=== PATIENT | male | born 1985 | race Caucasian/White ===

== ENCOUNTER → 2016-08-09 | Outpatient (CLI) | payer BC, OTHER ==
[~2016-08-09] MED LIST: BACTRIM DS 8001 TAB PO; CIPRO 500MG TA500 MG PO; DEXILANT60 MG PO; DULERA1 ARO IH; FERROUSAL325 MG PO; FLAGYL500 MG PO; FLOVENT 110MCG7.9 GM IH; IRON325 M1 PO; NEXIUM 20MG20 MG PO; NORCO 325 MG-51 TAB PO; NORCO 325 MG-7.1 TAB PO; PREDNISONE20 MG PO; PROVENTIL0.09 MG/A1 IH; RHINOCORT0.032 MG/1 NS; SINGULAIR 110 MG/TAB PO; TUSS PO; ULTRAM 50MG TAB50 MG PO; VENTOLIN0.09 MG IH; ZITHROMAX 250M250 MG PO; ZYRTEC 10MG10 MG PO; ZYRTEC5 MG PO
== END ==
LOC: COL.VAS 08-03 08:30
DX: J45.998 Other asthma (principal); G47.34 Idiopathic sleep related nonobstructive alveolar hypoventilation

== ENCOUNTER 2016-08-27 07:48 | Emergency (ER) | payer BC, OTHER ==
[~2016-08-27] VITALS: Ht 162.6 cm; Wt 84.1 kg
[~2016-08-27 07:48] MED LIST changes: -BACTRIM DS 8001 TAB PO; -CIPRO 500MG TA500 MG PO; -FLAGYL500 MG PO; -TUSS PO; -ULTRAM 50MG TAB50 MG PO; -ZITHROMAX 250M250 MG PO; -ZYRTEC 10MG10 MG PO
[2016-08-27 08:16] VITALS: BP 129/89; TEMP 98.3
[2016-08-27 08:55] LABS: BASO # 0.1 (0.0-0.2); BASO % 0.4 % (0.0-2.0); EOS # 0.4 (0.0-0.7); EOS % 2.7 % (0-4.0); GRAN # 11.2 (1.4-6.5); GRAN % 80.4 % (42.2-75.2); HEMATOCRIT 45.1 % (42.0-52.0); HEMOGLOBIN 15.4 g/dl (13.5-18.0); LYMPH # 1.5 (1.2-3.4); MEAN CELL VOLUME 83 fl (80.0-100.0); MEAN CORPUSCULAR HEMOGLOBIN 28 pg (27.0-31.0); MEAN CORPUSCULAR HGB CONC 34 g/dl (33.0-37.0); MEAN PLATELET VOLUME 10.4 fl (7.4-10.4); MONO # 0.7 (0.1-0.6); MONO % 5.1 % (1.7-9.3); PLATELET COUNT 196 K/mm3 (130-400); RED BLOOD COUNT 5.46 M/mm3 (4.20-5.60); REDCELL DISTRIBUTION WIDTH-CV 19.6 % (11.5-14.5)
[2016-08-27 08:58] LABS: PH 6 (5-8); SQUAMOUS EPITHELIAL None Seen /hpf; URINE APPEARANCE Clear; URINE BACTERIA None Seen /hpf; URINE BILIRUBIN Negative (NEGATIVE); URINE BLOOD Negative (NEGATIVE); URINE COLOR Yellow; URINE GLUCOSE Negative (NEGATIVE); URINE KETONE Trace (NEGATIVE); URINE RBC 0-2 /hpf; URINE UROBILINOGEN Negative (NEGATIVE); URINE WBC 0-2 /hpf
[2016-08-27 09:20] LABS: ADJUSTED CALCIUM 9.2 mg/dL (8.4-10.2); ALBUMIN 4.6 gm/dL (3.5-5.0); BILIRUBIN,TOTAL 1.1 mg/dL (0.0-1.0); C-REACTIVE PROTEIN 5.9 mg/dL (0.0-0.9); CALCIUM 9.7 mg/dL (8.4-10.2); CREATININE, serum 0.94 mg/dL (0.66-1.25); POTASSIUM 4.1 mmol/L (3.4-5.0); TOTAL PROTEIN 7.8 gm/dL (6.4-8.2)
[2016-08-27] MEDS ORDERED: FLAGYL500 MG PO (10:29)
[2016-08-27] MEDS ORDERED: CIPRO 500MG TA500 MG PO (10:29)
[2016-08-27] MEDS ORDERED: NORCO 325 MG-51 TAB PO (10:33)
[2016-08-27 10:40] VITALS: PULSE 101
== END 2016-08-27 10:40 | disposition home or self-care (01) ==
LOC: COL.ER 07:48
PROVIDERS: Physician Assistant
DX: K57.32 Diverticulitis of large intestine without perforation or abscess without bleeding (principal)
CPT/HCPCS: Q9967

== ENCOUNTER 2016-09-07 18:00 | Emergency (ER) | payer BC, OTHER ==
[~2016-09-07] VITALS: Ht 162.6 cm; Wt 84.1 kg
[~2016-09-07 18:00] MED LIST changes: +CIPRO 500MG TA500 MG PO; +FLAGYL500 MG PO
[2016-09-07 18:04] VITALS: TEMP 98.1
[2016-09-07 18:49] LABS: PH 6 (5-8); SQUAMOUS EPITHELIAL None Seen /hpf; URINE APPEARANCE Clear; URINE BACTERIA None Seen /hpf; URINE BILIRUBIN Negative (NEGATIVE); URINE BLOOD Negative (NEGATIVE); URINE COLOR Yellow; URINE GLUCOSE Negative (NEGATIVE); URINE KETONE Negative (NEGATIVE); URINE RBC 0-2 /hpf; URINE UROBILINOGEN Negative (NEGATIVE); URINE WBC 0-2 /hpf
[2016-09-07 18:54] LABS: BASO # 0.1 (0.0-0.2); BASO % 0.8 % (0.0-2.0); EOS # 0.3 (0.0-0.7); EOS % 4.5 % (0-4.0); GRAN # 3.8 (1.4-6.5); GRAN % 57.2 % (42.2-75.2); HEMOGLOBIN 13.6 g/dl (13.5-18.0); LYMPH # 2.1 (1.2-3.4); LYMPH % 32.2 % (20.0-51.0); MEAN CELL VOLUME 83 fl (80.0-100.0); MEAN CORPUSCULAR HEMOGLOBIN 28 pg (27.0-31.0); MEAN CORPUSCULAR HGB CONC 34 g/dl (33.0-37.0); MEAN PLATELET VOLUME 9.6 fl (7.4-10.4); MONO # 0.3 (0.1-0.6); PLATELET COUNT 213 K/mm3 (130-400); REDCELL DISTRIBUTION WIDTH-CV 17.8 % (11.5-14.5); WHITE BLOOD COUNT 6.7 K/mm3 (4.8-10.8)
[2016-09-07 19:09] LABS: ADJUSTED CALCIUM 9.6 mg/dL (8.4-10.2); ALANINE AMINOTRANSFERASE 49 U/L (21-72); ALBUMIN 3.8 gm/dL (3.5-5.0); ALKALINE PHOSPHATASE 57 U/L (50-136); ANION GAP 10 mmol/L (7-16); BILIRUBIN,TOTAL 0.5 mg/dL (0.0-1.0); BLOOD UREA NITROGEN 13 mg/dL (9-20); C-REACTIVE PROTEIN < 0.5 mg/dL (0.0-0.9); CALCIUM 9.4 mg/dL (8.4-10.2); CARBON DIOXIDE 25 mmol/L (22-30); CHLORIDE 104 mmol/L (98-107); CREATININE, serum 0.87 mg/dL (0.66-1.25); GLUCOSE 83 mg/dL (74-106); LIPASE 103 U/L (23-300); POTASSIUM 3.7 mmol/L (3.4-5.0); SODIUM 139 mmol/L (137-145); TOTAL PROTEIN 6.4 gm/dL (6.4-8.2)
[2016-09-07 19:21] LABS: ERYTHROCYTE SEDIMENTATION RATE 4 mm/hr (0-15)
[2016-09-07] MEDS ORDERED: NORCO 325 MG-51 TAB PO (20:18)
[2016-09-07] MEDS ORDERED: FLAGYL500 MG PO (20:18)
[2016-09-07] MEDS ORDERED: BACTRIM DS 8001 TAB PO (20:18)
[2016-09-07] MEDS ORDERED: ULTRAM 50MG TAB50 MG PO (20:18)
[2016-09-07 20:36] VITALS: BP 125/93; PULSE 67
== END 2016-09-07 20:38 | disposition home or self-care (01) ==
LOC: COL.ER 18:00
PROVIDERS: Emergency Medicine
DX: R10.32 Left lower quadrant pain (principal)

== ENCOUNTER → 2016-09-20 | Outpatient (CLI) | payer BC, OTHER ==
[~2016-09-20] MED LIST changes: +BACTRIM DS 8001 TAB PO; +TUSS PO; +ULTRAM 50MG TAB50 MG PO; +ZITHROMAX 250M250 MG PO; +ZYRTEC 10MG10 MG PO
== END ==
LOC: COL.RAD 09:45
DX: K22.4 Dyskinesia of esophagus (principal); N50.3 Cyst of epididymis; N43.2 Other hydrocele; K44.9 Diaphragmatic hernia without obstruction or gangrene; R10.2 Pelvic and perineal pain; N50.89 Other specified disorders of the male genital organs

== ENCOUNTER 2016-10-26 07:15 | Day surgery (SDC) | payer BC, OTHER ==
[2016-10-26] VITALS (11 sets, daily range): BP systolic 96–117; BP diastolic 51–74; PULSE 78–100; TEMP 97.4–98.6
[~2016-10-26] VITALS: Ht 162.6 cm; Wt 83.2 kg
[~2016-10-26 07:15] MED LIST changes: -TUSS PO; -ZITHROMAX 250M250 MG PO; -ZYRTEC 10MG10 MG PO
[2016-10-26] MEDS ORDERED: ZYRTEC 10MG10 MG PO (07:58)
[2016-10-27 02:17] VITALS: BP 110/71; PULSE 77; TEMP 98.5
[2016-10-27 05:02] VITALS: BP 101/60; PULSE 77; TEMP 97.5
[2016-10-27 09:42] VITALS: BP 108/56; PULSE 77; TEMP 98
[2016-10-27] MEDS ORDERED: NORCO 325 MG-7.1 TAB PO (10:59)
== END 2016-10-27 14:18 | disposition home or self-care (01) ==
LOC: SDCO 07:15 → SURG 11:20 → SDCO 10-27 14:18
DX: K44.9 Diaphragmatic hernia without obstruction or gangrene (principal); R13.10 Dysphagia, unspecified
CPT/HCPCS: OP; C1781; J0690; J1100; J2250; J2405; J2704; J3010; J7120

== ENCOUNTER 2016-11-01 22:09 | Emergency (ER) | payer BC, OTHER ==
[~2016-11-01] VITALS: Ht 162.6 cm; Wt 81.8 kg
[~2016-11-01 22:09] MED LIST changes: +ZYRTEC 10MG10 MG PO
[2016-11-01 22:12] VITALS: TEMP 98.5
[2016-11-01] MEDS ORDERED: ZITHROMAX 250M250 MG PO (23:06)
[2016-11-01 23:12] LABS: INFLUENZA B NEGATIVE
[2016-11-01 23:28] LABS: BASO % 0.6 % (0.0-2.0); EOS # 0.3 (0.0-0.7); EOS % 8.9 % (0-4.0); GRAN % 56.5 % (42.2-75.2); LYMPH # 0.8 (1.2-3.4); LYMPH % 23.3 % (20.0-51.0); MEAN CELL VOLUME 84 fl (80.0-100.0); MEAN CORPUSCULAR HEMOGLOBIN 28 pg (27.0-31.0); MEAN CORPUSCULAR HGB CONC 33 g/dl (33.0-37.0); MEAN PLATELET VOLUME 10.1 fl (7.4-10.4); MONO # 0.4 (0.1-0.6); MONO % 10.1 % (1.7-9.3); PLATELET COUNT 191 K/mm3 (130-400); RED BLOOD COUNT 4.31 M/mm3 (4.20-5.60); REDCELL DISTRIBUTION WIDTH-CV 12.1 % (11.5-14.5); WHITE BLOOD COUNT 3.5 K/mm3 (4.8-10.8)
[2016-11-01 23:30] LABS: HEMATOCRIT 36.3 % (42.0-52.0)
[2016-11-01 23:38] LABS: ADJUSTED CALCIUM 9.2 mg/dL (8.4-10.2); ALBUMIN 3.8 gm/dL (3.5-5.0); BILIRUBIN,TOTAL 1.1 mg/dL (0.0-1.0); CREATININE, serum 1.01 mg/dL (0.66-1.25); POTASSIUM 3.9 mmol/L (3.4-5.0); TOTAL PROTEIN 6.8 gm/dL (6.4-8.2)
[2016-11-01] MEDS ORDERED: TUSS PO (23:50)
[2016-11-02 00:39] VITALS: BP 117/77; PULSE 89
== END 2016-11-02 01:45 | disposition home or self-care (01) ==
LOC: COL.ER 22:09
PROVIDERS: Nurse Practitioner
DX: R05 Cough (principal); J20.9 Acute bronchitis, unspecified; J42 Unspecified chronic bronchitis; F17.210 Nicotine dependence, cigarettes, uncomplicated
CPT/HCPCS: J0456; J7030; J7050

== ENCOUNTER → 2016-11-08 | Outpatient (CLI) | payer BC, OTHER ==
[~2016-11-08] MED LIST changes: +TUSS PO; +ZITHROMAX 250M250 MG PO
== END ==
LOC: COL.RAD 13:04
DX: J98.11 Atelectasis (principal)

== ENCOUNTER → 2017-02-16 | Outpatient (CLI) | payer BC ==
[2017-02-16 13:41] LABS: BASO % 0.5 % (0.0-2.0); EOS # 0.1 (0.0-0.7); EOS % 1.9 % (0-4.0); GRAN # 4.1 (1.4-6.5); GRAN % 63.3 % (42.2-75.2); HEMATOCRIT 41.3 % (42.0-52.0); HEMOGLOBIN 13.6 g/dl (13.5-18.0); LYMPH # 1.9 (1.2-3.4); LYMPH % 28.5 % (20.0-51.0); MEAN CELL VOLUME 81 fl (80.0-100.0); MEAN CORPUSCULAR HEMOGLOBIN 27 pg (27.0-31.0); MEAN CORPUSCULAR HGB CONC 33 g/dl (33.0-37.0); MEAN PLATELET VOLUME 10.3 fl (7.4-10.4); MONO # 0.3 (0.1-0.6); MONO % 5.2 % (1.7-9.3); PLATELET COUNT 160 K/mm3 (130-400); RED BLOOD COUNT 5.09 M/mm3 (4.20-5.60); REDCELL DISTRIBUTION WIDTH-CV 20.6 % (11.5-14.5); WHITE BLOOD COUNT 6.5 K/mm3 (4.8-10.8)
== END ==
LOC: COL.LAB 11:58
PROVIDERS: Registered Nurse
DX: D50.9 Iron deficiency anemia, unspecified (principal)

== ENCOUNTER 2017-04-18 14:45 | Outpatient (RCR) | payer BC | END 2017-05-06 | LOC: WSPT | DX: M54.5 Low back pain (principal) ==

== ENCOUNTER 2017-09-12 08:44 | Emergency (ER) | payer BC ==
[~2017-09-12] VITALS: Ht 165.1 cm; Wt 82.3 kg
[~2017-09-12 08:44] MED LIST changes: +NAPROSYN500 MG PO
[2017-09-12 09:22] LABS: COLLECTION METHOD CLEAN CATCH
[2017-09-12 09:37] LABS: MUCOUS Present /lpf; PH 5 (5-8); SQUAMOUS EPITHELIAL None Seen /hpf; URINE APPEARANCE Clear; URINE BACTERIA None Seen /hpf; URINE BILIRUBIN Negative (NEGATIVE); URINE BLOOD Negative (NEGATIVE); URINE COLOR Yellow; URINE GLUCOSE Negative (NEGATIVE); URINE KETONE Negative (NEGATIVE); URINE LEUKOCYTE ESTERASE Negative (NEGATIVE); URINE NITRATE Negative (NEGATIVE); URINE PROTEIN(semi-quant) Negative (NEGATIVE); URINE RBC None Seen /hpf; URINE UROBILINOGEN Negative (NEGATIVE)
[2017-09-12 09:38] LABS: BASO # 0.1 (0.0-0.2); BASO % 0.6 % (0.0-2.0); EOS # 0.4 (0.0-0.7); GRAN # 6.3 (1.4-6.5); GRAN % 70.9 % (42.2-75.2); HEMATOCRIT 45.7 % (42.0-52.0); HEMOGLOBIN 15.9 g/dl (13.5-18.0); LYMPH # 1.7 (1.2-3.4); MEAN CELL VOLUME 87 fl (80.0-100.0); MEAN CORPUSCULAR HEMOGLOBIN 30 pg (27.0-31.0); MEAN CORPUSCULAR HGB CONC 35 g/dl (33.0-37.0); MEAN PLATELET VOLUME 10.4 fl (7.4-10.4); MONO # 0.5 (0.1-0.6); MONO % 5.2 % (1.7-9.3); PLATELET COUNT 181 K/mm3 (130-400); RED BLOOD COUNT 5.27 M/mm3 (4.20-5.60)
[2017-09-12 09:39] LABS: ALBUMIN 4.5 gm/dL (3.5-5.0); BILIRUBIN,TOTAL 0.5 mg/dL (0.0-1.0); CALCIUM 9.1 mg/dL (8.4-10.2); CREATININE, serum 0.8 mg/dL (0.66-1.25); POTASSIUM 4.2 mmol/L (3.4-5.0); TOTAL PROTEIN 7.3 gm/dL (6.4-8.2)
[2017-09-12] MEDS ORDERED: FLAGYL500 MG PO (12:08)
[2017-09-12] MEDS ORDERED: CIPRO 500MG TA500 MG PO (12:08)
[2017-09-12] MEDS ORDERED: NORCO 325 MG-7.1 TAB PO (12:08)
[2017-09-12 12:16] VITALS: BP 123/83; PULSE 85; TEMP 98.3
== END 2017-09-12 12:30 | disposition home or self-care (01) ==
LOC: COL.ER 08:44
PROVIDERS: Physician Assistant
DX: K57.92 Diverticulitis of intestine, part unspecified, without perforation or abscess without bleeding (principal); J45.909 Unspecified asthma, uncomplicated; D64.9 Anemia, unspecified; F17.210 Nicotine dependence, cigarettes, uncomplicated; Z90.49 Acquired absence of other specified parts of digestive tract
CPT/HCPCS: J1170; J2405; J7030; Q9967

== ENCOUNTER 2018-06-27 19:19 | Emergency (ER) | payer BC ==
[~2018-06-27] VITALS: Ht 162.6 cm; Wt 75.0 kg
[2018-06-27 19:55] LABS: COLLECTION METHOD CLEAN CATCH
[2018-06-27 20:01] LABS: BASO % 0.3 % (0.0-2.0); EOS # 0.2 (0.0-0.7); EOS % 1.4 % (0-4.0); GRAN # 11.5 (1.4-6.5); GRAN % 85.8 % (42.2-75.2); HEMATOCRIT 42.2 % (42.0-52.0); HEMOGLOBIN 14.6 g/dl (13.5-18.0); LYMPH # 0.9 (1.2-3.4); MEAN CELL VOLUME 87 fl (80.0-100.0); MEAN CORPUSCULAR HEMOGLOBIN 30 pg (27.0-31.0); MEAN CORPUSCULAR HGB CONC 35 g/dl (33.0-37.0); MEAN PLATELET VOLUME 10.1 fl (7.4-10.4); MONO # 0.7 (0.1-0.6); MONO % 5.2 % (1.7-9.3); PLATELET COUNT 181 K/mm3 (130-400); RED BLOOD COUNT 4.85 M/mm3 (4.20-5.60); REDCELL DISTRIBUTION WIDTH-CV 12.4 % (11.5-14.5)
[2018-06-27 20:12] LABS: AMORPHOUS CRYSTAL Present /uL; MUCOUS Present /lpf; PH 7 (5-8); SQUAMOUS EPITHELIAL None Seen /hpf; URINE APPEARANCE Cloudy; URINE BACTERIA None Seen /hpf; URINE BILIRUBIN Negative (NEGATIVE); URINE BLOOD Negative (NEGATIVE); URINE COLOR Yellow; URINE GLUCOSE Negative (NEGATIVE); URINE KETONE Negative (NEGATIVE); URINE LEUKOCYTE ESTERASE Negative (NEGATIVE); URINE NITRATE Negative (NEGATIVE); URINE PROTEIN(semi-quant) Negative (NEGATIVE); URINE RBC 0-2 /hpf; URINE UROBILINOGEN Negative (NEGATIVE)
[2018-06-27 20:31] LABS: ALBUMIN 4.1 gm/dL (3.5-5.0); BILIRUBIN,TOTAL 0.7 mg/dL (0.0-1.0); C-REACTIVE PROTEIN 2.3 mg/dL (0.0-0.9); CREATININE, serum 0.7 mg/dL (0.66-1.25); POTASSIUM 4.3 mmol/L (3.4-5.0); TOTAL PROTEIN 6.8 gm/dL (6.4-8.2)
[2018-06-27] MEDS ORDERED: FLAGYL500 MG PO (22:49)
[2018-06-27] MEDS ORDERED: PHENERGAN 25 TA25 MG PO (22:49)
[2018-06-27] MEDS ORDERED: NORCO 325 MG-51 TAB PO (22:49)
[2018-06-27] MEDS ORDERED: CIPRO 500MG TA500 MG PO (22:49)
[2018-06-27 23:11] VITALS: BP 104/66; PULSE 98; TEMP 99.9
== END 2018-06-27 23:30 | disposition home or self-care (01) ==
LOC: COL.ER 19:19
PROVIDERS: Emergency Medicine
DX: K57.32 Diverticulitis of large intestine without perforation or abscess without bleeding (principal); F17.210 Nicotine dependence, cigarettes, uncomplicated; Z98.890 Other specified postprocedural states
CPT/HCPCS: J2405; J3010; J7030; Q9967

== ENCOUNTER 2018-07-02 18:00 | Inpatient (IN) | payer BC ==
[~2018-07-02] VITALS: Ht 162.6 cm; Wt 73.7 kg
[~2018-07-02 18:00] MED LIST changes: +PHENERGAN 25 TA25 MG PO
[2018-07-02 18:53] LABS: BASO % 0.3 % (0.0-2.0); EOS # 0.2 (0.0-0.7); EOS % 1.2 % (0-4.0); GRAN # 10.8 (1.4-6.5); HEMATOCRIT 43.1 % (42.0-52.0); HEMOGLOBIN 14.7 g/dl (13.5-18.0); LYMPH # 1.4 (1.2-3.4); LYMPH % 10.9 % (20.0-51.0); MEAN CELL VOLUME 87 fl (80.0-100.0); MEAN CORPUSCULAR HEMOGLOBIN 30 pg (27.0-31.0); MEAN CORPUSCULAR HGB CONC 34 g/dl (33.0-37.0); MEAN PLATELET VOLUME 9.2 fl (7.4-10.4); MONO # 0.7 (0.1-0.6); MONO % 5.2 % (1.7-9.3); PLATELET COUNT 228 K/mm3 (130-400); RED BLOOD COUNT 4.96 M/mm3 (4.20-5.60); REDCELL DISTRIBUTION WIDTH-CV 12.2 % (11.5-14.5)
[2018-07-02 19:23] LABS: ALBUMIN 3.9 gm/dL (3.5-5.0); BILIRUBIN,TOTAL 0.5 mg/dL (0.0-1.0); C-REACTIVE PROTEIN 5.3 mg/dL (0.0-0.9); CALCIUM 8.9 mg/dL (8.4-10.2); CREATININE, serum 0.82 mg/dL (0.66-1.25); POTASSIUM 4.1 mmol/L (3.4-5.0)
[2018-07-02 22:27] VITALS: BP 102/64; PULSE 86; TEMP 98.9
[2018-07-02] MEDS ORDERED: VENTOLIN0.09 MG IH (23:04)
[2018-07-03 02:27] VITALS: BP 102/60; PULSE 79; TEMP 98.7
[2018-07-03 07:24] VITALS: BP 97/53; PULSE 80; TEMP 98
[2018-07-03 07:30] VITALS: BP 97/53; PULSE 80; TEMP 98
[2018-07-03 08:27] LABS: HEMATOCRIT 38.2 % (42.0-52.0); HEMOGLOBIN 13.1 g/dl (13.5-18.0); MEAN CELL VOLUME 88 fl (80.0-100.0); MEAN CORPUSCULAR HEMOGLOBIN 30 pg (27.0-31.0); MEAN CORPUSCULAR HGB CONC 34 g/dl (33.0-37.0); MEAN PLATELET VOLUME 9.7 fl (7.4-10.4); PLATELET COUNT 202 K/mm3 (130-400); RED BLOOD COUNT 4.36 M/mm3 (4.20-5.60); REDCELL DISTRIBUTION WIDTH-CV 12.3 % (11.5-14.5)
[2018-07-03 08:42] LABS: ALBUMIN 3.1 gm/dL (3.5-5.0); CALCIUM 8.3 mg/dL (8.4-10.2); CREATININE, serum 0.86 mg/dL (0.66-1.25); PHOSPHOROUS 3.4 mg/dL (2.5-4.5); POTASSIUM 4.1 mmol/L (3.4-5.0)
[2018-07-03 09:09] LABS: BAND 7 % (0-10); EOSINOPHIL 2 % (0-4); LYMPHOCYTE 16 % (20.0-51.0); NEUTROPHILS 70 % (42.0-75.2); PLATELET ESTIMATE NORMAL (NORMAL)
[2018-07-03 11:24] VITALS: BP 111/74; PULSE 85; TEMP 97.8
[2018-07-03 15:19] VITALS: BP 107/71; PULSE 81; TEMP 99.1
[2018-07-03 19:41] VITALS: BP 91/55; PULSE 79; TEMP 98.8
[2018-07-04] VITALS (7 sets, daily range): BP systolic 94–114; BP diastolic 55–73; PULSE 73–84; TEMP 98.1–98.5
[2018-07-04 09:06] LABS: BASO % 0.4 % (0.0-2.0); EOS # 0.3 (0.0-0.7); EOS % 3.1 % (0-4.0); GRAN # 6.3 (1.4-6.5); GRAN % 75.8 % (42.2-75.2); HEMATOCRIT 38.8 % (42.0-52.0); LYMPH # 1.3 (1.2-3.4); LYMPH % 15.2 % (20.0-51.0); MEAN CELL VOLUME 88 fl (80.0-100.0); MEAN CORPUSCULAR HEMOGLOBIN 30 pg (27.0-31.0); MEAN CORPUSCULAR HGB CONC 34 g/dl (33.0-37.0); MEAN PLATELET VOLUME 9.6 fl (7.4-10.4); MONO # 0.4 (0.1-0.6); PLATELET COUNT 190 K/mm3 (130-400); RED BLOOD COUNT 4.41 M/mm3 (4.20-5.60); REDCELL DISTRIBUTION WIDTH-CV 12.2 % (11.5-14.5)
[2018-07-04 09:13] LABS: CALCIUM 8.5 mg/dL (8.4-10.2); CREATININE, serum 0.83 mg/dL (0.66-1.25); POTASSIUM 4.1 mmol/L (3.4-5.0)
[2018-07-05 04:18] VITALS: BP 102/69; PULSE 70
[2018-07-05 07:39] VITALS: BP 101/63; PULSE 80; TEMP 98.1
[2018-07-05] MEDS ORDERED: AMOXICILLIN 8751 TAB PO (09:04)
[2018-07-05] MEDS ORDERED: NORCO 325 MG-51 TAB PO (09:04)
[2018-07-05 09:53] LABS: BASO % 0.5 % (0.0-2.0); EOS # 0.5 (0.0-0.7); EOS % 7.5 % (0-4.0); GRAN # 4.5 (1.4-6.5); GRAN % 68.5 % (42.2-75.2); HEMOGLOBIN 13.6 g/dl (13.5-18.0); LYMPH # 1.2 (1.2-3.4); LYMPH % 18.4 % (20.0-51.0); MEAN CELL VOLUME 86 fl (80.0-100.0); MEAN CORPUSCULAR HEMOGLOBIN 30 pg (27.0-31.0); MEAN CORPUSCULAR HGB CONC 35 g/dl (33.0-37.0); MEAN PLATELET VOLUME 9.3 fl (7.4-10.4); MONO # 0.3 (0.1-0.6); MONO % 4.6 % (1.7-9.3); PLATELET COUNT 200 K/mm3 (130-400); RED BLOOD COUNT 4.52 M/mm3 (4.20-5.60); REDCELL DISTRIBUTION WIDTH-CV 11.9 % (11.5-14.5)
[2018-07-05 10:01] LABS: CALCIUM 8.9 mg/dL (8.4-10.2); CREATININE, serum 0.87 mg/dL (0.66-1.25); POTASSIUM 4.1 mmol/L (3.4-5.0)
[2018-07-05 11:21] VITALS: BP 120/72; PULSE 85; TEMP 97.9
[2018-07-05 15:13] VITALS: BP 115/75; PULSE 74; TEMP 98.2
== END 2018-07-05 18:46 | disposition home or self-care (01) | DRG 392 ==
LOC: COL.ER 18:00 → MEDICAL 20:23
PROVIDERS: Emergency Medicine; Surgery
DX: K57.32 Diverticulitis of large intestine without perforation or abscess without bleeding (principal); F17.210 Nicotine dependence, cigarettes, uncomplicated
CPT/HCPCS: J2270; J2405; J2543; J7030; J7120; Q9967

== ENCOUNTER 2018-07-13 23:51 | Emergency (ER) | payer BC ==
[~2018-07-13] VITALS: Ht 162.6 cm; Wt 73.2 kg
[~2018-07-13 23:51] MED LIST changes: +AMOXICILLIN 8751 TAB PO
[2018-07-14 00:42] LABS: BASO # 0.1 (0.0-0.2); BASO % 0.4 % (0.0-2.0); EOS # 0.5 (0.0-0.7); EOS % 4.4 % (0-4.0); GRAN # 8.5 (1.4-6.5); GRAN % 75.6 % (42.2-75.2); HEMOGLOBIN 14.1 g/dl (13.5-18.0); LYMPH # 1.7 (1.2-3.4); LYMPH % 15.2 % (20.0-51.0); MEAN CELL VOLUME 87 fl (80.0-100.0); MEAN CORPUSCULAR HEMOGLOBIN 30 pg (27.0-31.0); MEAN CORPUSCULAR HGB CONC 34 g/dl (33.0-37.0); MEAN PLATELET VOLUME 9.7 fl (7.4-10.4); MONO # 0.5 (0.1-0.6); PLATELET COUNT 236 K/mm3 (130-400); RED BLOOD COUNT 4.69 M/mm3 (4.20-5.60); REDCELL DISTRIBUTION WIDTH-CV 12.5 % (11.5-14.5)
[2018-07-14 00:57] LABS: ALANINE AMINOTRANSFERASE 55 U/L (21-72); ALBUMIN 4.1 gm/dL (3.5-5.0); ALKALINE PHOSPHATASE 67 U/L (50-136); ANION GAP 9 mmol/L (7-16); AST,SGOT 25 U/L (15-37); BILIRUBIN,TOTAL 0.5 mg/dL (0.0-1.0); BLOOD UREA NITROGEN 9 mg/dL (9-20); CALCIUM 9.3 mg/dL (8.4-10.2); CARBON DIOXIDE 25 mmol/L (22-30); CHLORIDE 107 mmol/L (98-107); CREATININE, serum 0.68 mg/dL (0.66-1.25); GLUCOSE 107 mg/dL (74-106); POTASSIUM 3.6 mmol/L (3.4-5.0); SODIUM 141 mmol/L (137-145)
[2018-07-14 01:12] LABS: LIPASE 76 U/L (23-300); MAGNESIUM 1.8 mg/dL (1.6-2.3)
[2018-07-14 01:13] LABS: C-REACTIVE PROTEIN < 0.5 mg/dL (0.0-0.9)
[2018-07-14] MEDS ORDERED: FLAGYL500 MG PO (03:06)
[2018-07-14 03:10] VITALS: BP 111/83; PULSE 67; TEMP 97
== END 2018-07-14 03:15 | disposition home or self-care (01) ==
LOC: COL.ER 23:51
PROVIDERS: Emergency Medicine
DX: K57.92 Diverticulitis of intestine, part unspecified, without perforation or abscess without bleeding (principal); E86.9 Volume depletion, unspecified; F17.210 Nicotine dependence, cigarettes, uncomplicated
CPT/HCPCS: J2405; J7030; Q9967

== ENCOUNTER 2019-08-22 12:11 | Emergency (ER) | payer SELFPAY ==
[~2019-08-22] VITALS: Ht 162.6 cm; Wt 77.3 kg
[2019-08-22 12:21] VITALS: BP 112/81
[2019-08-22 13:18] LABS: COLLECTION METHOD CLEAN CATCH
[2019-08-22 13:26] LABS: MUCOUS Present /lpf; PH 5 (5-8); SQUAMOUS EPITHELIAL None Seen /hpf; URINE APPEARANCE Clear; URINE BACTERIA None Seen /hpf; URINE BILIRUBIN Negative (NEGATIVE); URINE BLOOD Negative (NEGATIVE); URINE COLOR Yellow; URINE GLUCOSE Negative (NEGATIVE); URINE KETONE Trace (NEGATIVE); URINE LEUKOCYTE ESTERASE Negative (NEGATIVE); URINE NITRATE Negative (NEGATIVE); URINE PROTEIN(semi-quant) Negative (NEGATIVE); URINE RBC 0-2 /hpf; URINE UROBILINOGEN Negative (NEGATIVE)
[2019-08-22 13:28] LABS: BASO % 0.2 % (0.0-2.0); EOS # 0.2 (0.0-0.7); GRAN # 2.4 (1.4-6.5); GRAN % 55.6 % (42.2-75.2); HEMATOCRIT 46.5 % (42.0-52.0); HEMOGLOBIN 15.9 g/dl (13.5-18.0); LYMPH # 1.3 (1.2-3.4); LYMPH % 30.7 % (20.0-51.0); MEAN CELL VOLUME 87 fl (80.0-100.0); MEAN CORPUSCULAR HEMOGLOBIN 30 pg (27.0-31.0); MEAN CORPUSCULAR HGB CONC 34 g/dl (33.0-37.0); MEAN PLATELET VOLUME 10.1 fl (7.4-10.4); MONO # 0.4 (0.1-0.6); MONO % 8.3 % (1.7-9.3); PLATELET COUNT 160 K/mm3 (130-400); RED BLOOD COUNT 5.35 M/mm3 (4.20-5.60); REDCELL DISTRIBUTION WIDTH-CV 12.6 % (11.5-14.5)
[2019-08-22 13:40] LABS: ALBUMIN 4.5 gm/dL (3.5-5.0); BILIRUBIN,TOTAL 0.8 mg/dL (0.0-1.0); C-REACTIVE PROTEIN 2.1 mg/dL (0.0-0.9); CALCIUM 8.8 mg/dL (8.4-10.2); POTASSIUM 3.9 mmol/L (3.4-5.0); TOTAL PROTEIN 7.6 gm/dL (6.4-8.2)
[2019-08-22] MEDS ORDERED: FLAGYL500 MG PO (14:16)
[2019-08-22] MEDS ORDERED: CIPRO 500MG TA500 MG PO (14:16)
[2019-08-22 14:20] VITALS: PULSE 116; TEMP 98.8
== END 2019-08-22 14:21 | disposition home or self-care (01) ==
LOC: COL.ER 12:11
PROVIDERS: Physician Assistant
DX: J09.X2 Influenza due to identified novel influenza A virus with other respiratory manifestations (principal); J45.909 Unspecified asthma, uncomplicated; F17.290 Nicotine dependence, other tobacco product, uncomplicated; Z88.5 Allergy status to narcotic agent

== ENCOUNTER 2020-06-07 09:03 | Emergency (ER) | payer SELFPAY ==
[~2020-06-07] VITALS: Ht 162.6 cm; Wt 78.2 kg
[2020-06-07 09:12] VITALS: TEMP 97
[2020-06-07] MEDS ORDERED: PREDNISONE20 MG PO (09:49)
[2020-06-07] MEDS ORDERED: ZITHROMAX Z PA250 MG PO (09:49)
[2020-06-07] MEDS ORDERED: PROAIR HFA0.09 MG/AC IH (09:49)
[2020-06-07 12:44] VITALS: BP 111/77; PULSE 97
== END 2020-06-07 10:06 | disposition home or self-care (01) ==
LOC: COL.ER 09:03
DX: R05 Cough (principal); R06.02 Shortness of breath; Z20.828 Contact with and (suspected) exposure to other viral communicable diseases; Z88.6 Allergy status to analgesic agent; Z79.51 Long term (current) use of inhaled steroids

== ENCOUNTER 2020-07-14 19:07 | Emergency (ER) | payer SELFPAY ==
[~2020-07-14] VITALS: Ht 162.6 cm; Wt 80.0 kg
[~2020-07-14 19:07] MED LIST changes: +PROAIR HFA0.09 MG/AC IH; +ZITHROMAX Z PA250 MG PO
[2020-07-14 19:35] VITALS: TEMP 99.3
[2020-07-14 20:35] LABS: HEMATOCRIT 42.7 % (42.0-52.0); HEMOGLOBIN 14.7 g/dl (13.5-18.0); MEAN CELL VOLUME 86 fl (80.0-100.0); MEAN CORPUSCULAR HEMOGLOBIN 30 pg (27.0-31.0); MEAN CORPUSCULAR HGB CONC 34 g/dl (33.0-37.0); MEAN PLATELET VOLUME 10.1 fl (7.4-10.4); PLATELET COUNT 187 K/mm3 (130-400); RED BLOOD COUNT 4.96 M/mm3 (4.20-5.60)
[2020-07-14 20:46] LABS: ALBUMIN 4.2 gm/dL (3.5-5.0); CALCIUM 8.8 mg/dL (8.4-10.2); CREATININE, serum 1.11 (0.66-1.25); POTASSIUM 3.6 mmol/L (3.4-5.0); TOTAL PROTEIN 6.9 gm/dL (6.4-8.2)
[2020-07-14 21:29] LABS: BAND 3 % (0-10); EOSINOPHIL 1 % (0-4); LYMPHOCYTE 6 % (20.0-51.0); NEUTROPHILS 87 % (42.0-75.2)
[2020-07-14 21:31] LABS: PLATELET ESTIMATE NORMAL (NORMAL)
[2020-07-14 23:08] VITALS: BP 124/68; PULSE 110
== END 2020-07-14 23:07 | disposition home or self-care (01) ==
LOC: COL.ER 19:07
PROVIDERS: Emergency Medicine
DX: B34.9 Viral infection, unspecified (principal); F17.210 Nicotine dependence, cigarettes, uncomplicated; Z20.828 Contact with and (suspected) exposure to other viral communicable diseases; Z88.6 Allergy status to analgesic agent; Z79.52 Long term (current) use of systemic steroids
CPT/HCPCS: J2405; J7030

== ENCOUNTER 2020-07-28 07:19 | Inpatient (IN) | payer SELFPAY ==
[~2020-07-28] VITALS: Ht 162.6 cm; Wt 78.9 kg
[2020-07-28 08:28] LABS: BASO % 0.2 % (0.0-2.0); EOS # 0.2 (0.0-0.7); EOS % 1.5 % (0-4.0); GRAN # 10.5 (1.4-6.5); GRAN % 82.4 % (42.2-75.2); HEMATOCRIT 40.5 % (42.0-52.0); HEMOGLOBIN 13.9 g/dl (13.5-18.0); LYMPH # 1.3 (1.2-3.4); LYMPH % 10.1 % (20.0-51.0); MEAN CELL VOLUME 86 fl (80.0-100.0); MEAN CORPUSCULAR HEMOGLOBIN 29 pg (27.0-31.0); MEAN CORPUSCULAR HGB CONC 34 g/dl (33.0-37.0); MEAN PLATELET VOLUME 9.9 fl (7.4-10.4); MONO # 0.7 (0.1-0.6); MONO % 5.3 % (1.7-9.3); PLATELET COUNT 205 K/mm3 (130-400); RED BLOOD COUNT 4.73 M/mm3 (4.20-5.60); REDCELL DISTRIBUTION WIDTH-CV 12.4 % (11.5-14.5)
[2020-07-28 08:40] LABS: ALBUMIN 3.7 gm/dL (3.5-5.0); BILIRUBIN,TOTAL 0.7 mg/dL (0.0-1.0); CALCIUM 8.5 mg/dL (8.4-10.2); CREATININE, serum 0.9 (0.66-1.25); POTASSIUM 4.2 mmol/L (3.4-5.0); TOTAL PROTEIN 6.4 gm/dL (6.4-8.2)
[2020-07-28 08:56] LABS: COLLECTION METHOD CLEAN CATCH
[2020-07-28 09:10] LABS: MUCOUS Present /lpf; PH 7 (5-8); SQUAMOUS EPITHELIAL None Seen /hpf; URINE APPEARANCE Clear; URINE BACTERIA None Seen /hpf; URINE BILIRUBIN Negative (NEGATIVE); URINE BLOOD Negative (NEGATIVE); URINE COLOR Yellow; URINE GLUCOSE Negative (NEGATIVE); URINE KETONE Negative (NEGATIVE); URINE LEUKOCYTE ESTERASE Negative (NEGATIVE); URINE NITRATE Negative (NEGATIVE); URINE PROTEIN(semi-quant) Negative (NEGATIVE); URINE RBC None Seen /hpf; URINE WBC 0-2 /hpf
[2020-07-28 17:57] VITALS: BP 108/70; PULSE 82; TEMP 98.3
[2020-07-28 18:00] VITALS: BP 108/70; PULSE 82; TEMP 98.3
[2020-07-28 19:43] VITALS: BP 106/71; PULSE 85; TEMP 98.5
--- NOTE | 2020-07-28 22:15 | NUR ---
Patient called out to nurses alex, states pain 7/10 to abdomen after po pain medicaion administration. Dilaudid given at this time. No further needs at this time.
[2020-07-29 00:20] VITALS: BP 98/68; PULSE 72; TEMP 97.6
[2020-07-29 03:26] VITALS: BP 82/55; BP 90/52; PULSE 70; TEMP 97.6
[2020-07-29 05:18] VITALS: BP 98/69
--- NOTE | 2020-07-29 07:00 | NUR ---
Lying in bed with eyes open. Rates pain in abd 5/10, describes as an ache, and requests pain medication. Will administer pain medication as prescribed. Patient hopes that he can be discharged today but understands if they are not able to let him leave today. Denies needs at this time.
--- NOTE | 2020-07-29 07:25 | NUR ---
Patient doing well overnight, naps between disturbances. Denies pain at this time. Denies further needs at this time. Will report off to overnight associate.
[2020-07-29 08:15] VITALS: BP 114/76; PULSE 69; TEMP 97.7
[2020-07-29 10:25] LABS: BASO % 0.4 % (0.0-2.0); EOS # 0.2 (0.0-0.7); EOS % 3.4 % (0-4.0); GRAN # 3.2 (1.4-6.5); GRAN % 66.8 % (42.2-75.2); HEMATOCRIT 37.7 % (42.0-52.0); HEMOGLOBIN 12.8 g/dl (13.5-18.0); LYMPH # 1.1 (1.2-3.4); LYMPH % 22.7 % (20.0-51.0); MEAN CELL VOLUME 87 fl (80.0-100.0); MEAN CORPUSCULAR HEMOGLOBIN 29 pg (27.0-31.0); MEAN CORPUSCULAR HGB CONC 34 g/dl (33.0-37.0); MONO # 0.3 (0.1-0.6); MONO % 6.5 % (1.7-9.3); PLATELET COUNT 165 K/mm3 (130-400); RED BLOOD COUNT 4.35 M/mm3 (4.20-5.60); REDCELL DISTRIBUTION WIDTH-CV 12.4 % (11.5-14.5)
[2020-07-29 10:34] LABS: ALBUMIN 3.3 gm/dL (3.5-5.0); BILIRUBIN,TOTAL 0.7 mg/dL (0.0-1.0); CALCIUM 8.1 mg/dL (8.4-10.2); CREATININE, serum 0.84 (0.66-1.25); POTASSIUM 4.1 mmol/L (3.4-5.0); TOTAL PROTEIN 6.1 gm/dL (6.4-8.2)
[2020-07-29 12:13] VITALS: BP 111/71; PULSE 67; TEMP 97.8
--- NOTE | 2020-07-29 12:54 | NUR ---
Lying in bed with eyes open watching TV. Denies pain at this time. Is excited about getting his diet advanced. Denies needs at this time.
--- NOTE | 2020-07-29 14:25 | NUR ---
Lying in bed watching TV and talking on phone. No pain at this time. The cafeteria provided patient with a mechanical soft diet for lunch. Patient feels that he did well with this. Denies needs at this time.
--- NOTE | 2020-07-29 14:34 | NUR ---
Spoke with Dr. Russo regarding prescriptions in case patient is discharged this evening and he agrees that we can call the antibiotics to the pharmacy for someone to citrus picker for the patient so that he has the medication in case of discharge tonight. Spoke with the patient and he will have his go to the pharmacy to citrus picker meds. Patient would like the meds filled at [facility]. [facility]tacted [facility] and spoke with Kari and provided prescriptions for Cipro and Flagyl.
[2020-07-29 15:44] VITALS: BP 87/54; PULSE 68; TEMP 98.1
--- NOTE | 2020-07-29 16:03 | NUR ---
Patient will get dressed at this time and contact friend for ride home. Explain that I would be back with his discharge paperwork.
--- NOTE | 2020-07-29 16:15 | NUR ---
Review all discharge instructions with the patient. Denies questions and signs discharge paperwork. Discharge packet provided to the patient. Patient will use call light when ride is at ER to pick him up.
--- NOTE | 2020-07-29 16:19 | NUR ---
Patient calls and says that his ride is here to pick him up. Patient assisted out to ER entrance to PO with all personal belongings by CAIRDAD Dowling.
== END 2020-07-29 16:20 | disposition home or self-care (01) | DRG 392 ==
LOC: COL.ER 07:19 → SURG 11:53
PROVIDERS: Emergency Medicine; Surgery; ADMIT Hospitalist
DX: K57.32 Diverticulitis of large intestine without perforation or abscess without bleeding (principal); J45.909 Unspecified asthma, uncomplicated; D50.9 Iron deficiency anemia, unspecified
CPT/HCPCS: 99222-AI; 99239; J0744; J1170; J1650; J2270; J2405; J7030; Q9967

== ENCOUNTER 2021-03-08 17:30 | Emergency (ER) | payer SELFPAY ==
[~2021-03-08] VITALS: Ht 162.6 cm; Wt 80.9 kg
[~2021-03-08 17:30] MED LIST changes: +ZOFRAN ODT4 MG PO
[2021-03-08 18:12] VITALS: TEMP 98
[2021-03-08 19:06] LABS: BASO # 0.1 (0.0-0.2); BASO % 0.8 % (0.0-2.0); EOS # 0.7 (0.0-0.7); EOS % 8.3 % (0-4.0); GRAN # 4.7 (1.4-6.5); GRAN % 58.3 % (42.2-75.2); HEMATOCRIT 43.6 % (42.0-52.0); HEMOGLOBIN 14.6 g/dl (13.5-18.0); LYMPH # 2.2 (1.2-3.4); LYMPH % 27.3 % (20.0-51.0); MEAN CELL VOLUME 89 fl (80.0-100.0); MEAN CORPUSCULAR HEMOGLOBIN 30 pg (27.0-31.0); MEAN CORPUSCULAR HGB CONC 34 g/dl (33.0-37.0); MEAN PLATELET VOLUME 10.3 fl (7.4-10.4); MONO # 0.4 (0.1-0.6); MONO % 4.9 % (1.7-9.3); PLATELET COUNT 206 K/mm3 (130-400); RED BLOOD COUNT 4.89 M/mm3 (4.20-5.60); REDCELL DISTRIBUTION WIDTH-CV 12.6 % (11.5-14.5)
[2021-03-08 19:17] LABS: ALBUMIN 4.2 gm/dL (3.5-5.0); BILIRUBIN,TOTAL 0.3 mg/dL (0.0-1.0); CALCIUM 9.1 mg/dL (8.4-10.2); CREATININE, serum 0.88 (0.66-1.25); TOTAL PROTEIN 7.1 gm/dL (6.4-8.2)
[2021-03-08 20:11] LABS: COLLECTION METHOD CLEAN CATCH
[2021-03-08 20:19] LABS: PH 6 (5-8); SQUAMOUS EPITHELIAL None Seen /hpf; URINE APPEARANCE Clear; URINE BACTERIA None Seen /hpf; URINE BILIRUBIN Negative (NEGATIVE); URINE BLOOD Negative (NEGATIVE); URINE COLOR Straw; URINE GLUCOSE Negative (NEGATIVE); URINE KETONE Negative (NEGATIVE); URINE LEUKOCYTE ESTERASE Negative (NEGATIVE); URINE NITRATE Negative (NEGATIVE); URINE PROTEIN(semi-quant) Negative (NEGATIVE); URINE RBC 0-2 /hpf; URINE UROBILINOGEN Negative (NEGATIVE)
[2021-03-08] MEDS ORDERED: ZOFRAN ODT4 MG PO (21:21)
[2021-03-08] MEDS ORDERED: PEPCID 20MG TAB20 MG PO (21:21)
[2021-03-08] MEDS ORDERED: NORCO 325 MG-51 TAB PO (21:23)
[2021-03-08 21:50] VITALS: BP 128/89; PULSE 91
== END 2021-03-08 21:50 | disposition home or self-care (01) ==
LOC: COL.ER 17:30
PROVIDERS: Emergency Medicine
DX: R10.32 Left lower quadrant pain (principal); F17.210 Nicotine dependence, cigarettes, uncomplicated; Z90.49 Acquired absence of other specified parts of digestive tract
CPT/HCPCS: J2270; J2405; J7030; Q9967

== ENCOUNTER → 2021-03-25 | Outpatient (CLI) | payer SELFPAY ==
[~2021-03-25] MED LIST changes: +PEPCID 20MG TAB20 MG PO; +VANCOCIN H125 MG/CAP PO; +ZOFRAN 4MG T4 MG/TAB PO
[2021-03-25 17:13] LABS: CLOSTRIDIUM DIFF A/B NEG; CLOSTRIDIUM DIFF A/B INTERP NonToxigenic C.diff
== END ==
LOC: COL.LAB 11:27
PROVIDERS: Registered Nurse
DX: R19.7 Diarrhea, unspecified (principal)

== ENCOUNTER 2021-04-06 11:33 | Emergency (ER) | payer SELFPAY ==
[~2021-04-06] VITALS: Ht 162.6 cm; Wt 79.1 kg
[~2021-04-06 11:33] MED LIST changes: -VANCOCIN H125 MG/CAP PO; -ZOFRAN 4MG T4 MG/TAB PO
[2021-04-06 13:43] LABS: BASO % 0.4 % (0.0-2.0); EOS # 0.2 (0.0-0.7); EOS % 1.9 % (0-4.0); GRAN # 8.7 (1.4-6.5); HEMATOCRIT 44.2 % (42.0-52.0); HEMOGLOBIN 14.9 g/dl (13.5-18.0); LYMPH # 1.3 (1.2-3.4); LYMPH % 12.2 % (20.0-51.0); MEAN CELL VOLUME 87 fl (80.0-100.0); MEAN CORPUSCULAR HEMOGLOBIN 29 pg (27.0-31.0); MEAN CORPUSCULAR HGB CONC 34 g/dl (33.0-37.0); MONO # 0.6 (0.1-0.6); MONO % 5.2 % (1.7-9.3); PLATELET COUNT 182 K/mm3 (130-400); RED BLOOD COUNT 5.08 M/mm3 (4.20-5.60); REDCELL DISTRIBUTION WIDTH-CV 12.6 % (11.5-14.5)
[2021-04-06 13:54] LABS: ALBUMIN 4.3 gm/dL (3.5-5.0); BILIRUBIN,TOTAL 0.7 mg/dL (0.0-1.0); CREATININE, serum 1.07 (0.66-1.25); POTASSIUM 4.3 mmol/L (3.4-5.0); TOTAL PROTEIN 7.4 gm/dL (6.4-8.2)
[2021-04-06 13:57] LABS: COLLECTION METHOD CLEAN CATCH
[2021-04-06 14:09] LABS: MUCOUS Present /lpf; PH 7 (5-8); SQUAMOUS EPITHELIAL None Seen /hpf; URINE APPEARANCE Clear; URINE BACTERIA None Seen /hpf; URINE BILIRUBIN Negative (NEGATIVE); URINE BLOOD Negative (NEGATIVE); URINE COLOR Yellow; URINE GLUCOSE Negative (NEGATIVE); URINE KETONE Trace (NEGATIVE); URINE LEUKOCYTE ESTERASE Negative (NEGATIVE); URINE NITRATE Negative (NEGATIVE); URINE PROTEIN(semi-quant) Negative (NEGATIVE); URINE RBC 0-2 /hpf; URINE UROBILINOGEN Negative (NEGATIVE)
[2021-04-07 08:47] VITALS: TEMP 98.6
[2021-04-07] MEDS ORDERED: NORCO 325 MG-51 TAB PO (09:55)
[2021-04-07] MEDS ORDERED: ZOFRAN ODT4 MG PO (09:56)
[2021-04-07] MEDS ORDERED: VANCOCIN H125 MG/CAP PO (09:57)
[2021-04-07 11:38] VITALS: BP 113/79; PULSE 103
== END 2021-04-07 11:38 | disposition home or self-care (01) ==
LOC: COL.ER 11:33
PROVIDERS: Student in an Organized Health Care Education/Training Program
DX: A04.72 Enterocolitis due to Clostridium difficile, not specified as recurrent (principal); J45.909 Unspecified asthma, uncomplicated; Z87.19 Personal history of other diseases of the digestive system; Z79.899 Other long term (current) drug therapy; Z79.51 Long term (current) use of inhaled steroids
CPT/HCPCS: 99222-AI; J0692; J2270; J2405; J7030; J7120; Q9967

== ENCOUNTER 2021-05-17 19:09 | Emergency (ER) | payer SELFPAY ==
[~2021-05-17] VITALS: Ht 162.6 cm; Wt 79.5 kg
[~2021-05-17 19:09] MED LIST changes: +VANCOCIN H125 MG/CAP PO
[2021-05-17 20:13] LABS: ALBUMIN 4.4 gm/dL (3.5-5.0); CALCIUM 9.5 mg/dL (8.4-10.2); CREATININE, serum 1.12 mg/dL (0.72-1.25); POTASSIUM 4.1 mmol/L (3.5-4.5); TOTAL PROTEIN 7.7 gm/dL (6.2-8.1)
[2021-05-17 21:02] LABS: COLLECTION METHOD CLEAN CATCH
[2021-05-17 21:09] LABS: MUCOUS Present /lpf; PH 7 (5-8); SQUAMOUS EPITHELIAL None Seen /hpf; URINE APPEARANCE Hazy; URINE BACTERIA None Seen /hpf; URINE BILIRUBIN Negative (NEGATIVE); URINE BLOOD Negative (NEGATIVE); URINE COLOR Yellow; URINE GLUCOSE Negative (NEGATIVE); URINE KETONE 1+ (NEGATIVE); URINE LEUKOCYTE ESTERASE Negative (NEGATIVE); URINE NITRATE Negative (NEGATIVE); URINE PROTEIN(semi-quant) Negative (NEGATIVE); URINE RBC 0-2 /hpf
[2021-05-17 21:32] LABS: BASO % 0.5 % (0.0-2.0); EOS # 0.1 K/mm3 (0.0-0.7); EOS % 0.7 % (0-4.0); GRAN # 7.7 K/mm3 (1.4-6.5); GRAN % 87.2 % (42.2-75.2); HEMATOCRIT 45.9 % (42.0-52.0); HEMOGLOBIN 15.5 g/dl (13.5-18.0); LYMPH # 0.5 K/mm3 (1.2-3.4); LYMPH % 6.1 % (20.0-51.0); MEAN CELL VOLUME 87 fl (80.0-100.0); MEAN CORPUSCULAR HEMOGLOBIN 29 pg (27.0-31.0); MEAN CORPUSCULAR HGB CONC 34 g/dl (33.0-37.0); MEAN PLATELET VOLUME 10.5 fl (7.4-10.4); MONO # 0.5 K/mm3 (0.1-0.6); MONO % 5.3 % (1.7-9.3); PLATELET COUNT 190 K/mm3 (130-400); RED BLOOD COUNT 5.28 M/mm3 (4.20-5.60); REDCELL DISTRIBUTION WIDTH-CV 12.5 % (11.5-14.5)
[2021-05-17 22:22] LABS: BILIRUBIN,TOTAL 1.2 mg/dL (0.2-1.2)
[2021-05-17] MEDS ORDERED: ZOFRAN 4MG T4 MG/TAB PO (23:17)
[2021-05-17 23:46] VITALS: BP 104/68; PULSE 94; TEMP 99
== END 2021-05-17 23:46 | disposition home or self-care (01) ==
LOC: COL.ER 19:09
PROVIDERS: Nurse Practitioner Primary Care
DX: R10.13 Epigastric pain (principal); R11.0 Nausea; J45.909 Unspecified asthma, uncomplicated; F17.210 Nicotine dependence, cigarettes, uncomplicated; Z20.822 Contact with and (suspected) exposure to COVID-19; Z90.49 Acquired absence of other specified parts of digestive tract; Z87.19 Personal history of other diseases of the digestive system; Z79.899 Other long term (current) drug therapy
CPT/HCPCS: J7030; Q9967

== ENCOUNTER 2021-05-23 18:42 | Emergency (ER) | payer SELFPAY ==
[~2021-05-23] VITALS: Ht 162.6 cm; Wt 77.3 kg
[~2021-05-23 18:42] MED LIST changes: +ZOFRAN 4MG T4 MG/TAB PO
[2021-05-23 21:52] LABS: HEMATOCRIT 38.1 % (42.0-52.0); HEMOGLOBIN 13.4 g/dl (13.5-18.0); MEAN CELL VOLUME 85 fl (80.0-100.0); MEAN CORPUSCULAR HEMOGLOBIN 30 pg (27.0-31.0); MEAN CORPUSCULAR HGB CONC 35 g/dl (33.0-37.0); MEAN PLATELET VOLUME 9.8 fl (7.4-10.4); PLATELET COUNT 207 K/mm3 (130-400); RED BLOOD COUNT 4.51 M/mm3 (4.20-5.60); REDCELL DISTRIBUTION WIDTH-CV 12.2 % (11.5-14.5)
[2021-05-23 22:00] LABS: COLLECTION METHOD CLEAN CATCH
[2021-05-23 22:06] LABS: MUCOUS Present /lpf; PH 6 (5-8); SQUAMOUS EPITHELIAL 0-2 /hpf; URINE APPEARANCE Clear; URINE BACTERIA None Seen /hpf; URINE BILIRUBIN Negative (NEGATIVE); URINE BLOOD Negative (NEGATIVE); URINE COLOR Yellow; URINE GLUCOSE Negative (NEGATIVE); URINE KETONE Negative (NEGATIVE); URINE LEUKOCYTE ESTERASE Negative (NEGATIVE); URINE NITRATE Negative (NEGATIVE); URINE PROTEIN(semi-quant) Negative (NEGATIVE); URINE RBC 0-2 /hpf; URINE UROBILINOGEN Negative (NEGATIVE)
[2021-05-23 22:08] LABS: ALBUMIN 3.7 gm/dL (3.5-5.0); BILIRUBIN,TOTAL 0.3 mg/dL (0.2-1.2); C-REACTIVE PROTEIN 2.9 mg/dL (0.00-0.50); CALCIUM 8.9 mg/dL (8.4-10.2); CREATININE, serum 0.83 mg/dL (0.72-1.25); POTASSIUM 3.9 mmol/L (3.5-4.5); TOTAL PROTEIN 7.2 gm/dL (6.2-8.1)
[2021-05-23 22:35] LABS: BAND 1 % (0-10); EOSINOPHIL 1 % (0-4); LYMPHOCYTE 25 % (20.0-51.0); NEUTROPHILS 69 % (42.0-75.2); PLATELET ESTIMATE NORMAL (NORMAL)
[2021-05-23] MEDS ORDERED: AMOXICILLIN 8751 TAB PO (23:16)
[2021-05-24] VITALS: BP 123/91; PULSE 88; TEMP 97.8
== END 2021-05-24 | disposition home or self-care (01) ==
LOC: COL.ER 18:42
PROVIDERS: Nurse Practitioner
DX: R10.32 Left lower quadrant pain (principal); J45.909 Unspecified asthma, uncomplicated; F17.210 Nicotine dependence, cigarettes, uncomplicated; Z79.899 Other long term (current) drug therapy; Z79.51 Long term (current) use of inhaled steroids
CPT/HCPCS: J1170; J2405; J7030

== ENCOUNTER → 2021-08-16 | Outpatient (CLI) | payer SELFPAY | LOC: COL.RAD 12:17 | DX: R19.09 Other intra-abdominal and pelvic swelling, mass and lump (principal) ==

== ENCOUNTER → 2021-09-16 | Outpatient (CLI) | payer BC ==
[2021-09-16 13:34] LABS: BASO # 0.1 K/mm3 (0.0-0.2); BASO % 0.7 % (0.0-2.0); EOS # 0.3 K/mm3 (0.0-0.7); EOS % 4.6 % (0.0-4.0); GRAN # 4.6 K/mm3 (1.4-6.5); HEMATOCRIT 43.8 % (42.0-52.0); HEMOGLOBIN 14.9 g/dl (13.5-18.0); LYMPH # 1.7 K/mm3 (1.2-3.4); LYMPH % 24.4 % (20.0-51.0); MEAN CELL VOLUME 87 fl (80.0-100.0); MEAN CORPUSCULAR HEMOGLOBIN 30 pg (27-31); MEAN CORPUSCULAR HGB CONC 34 g/dl (33.0-37.0); MONO # 0.4 K/mm3 (0.1-0.6); MONO % 5.9 % (1.7-9.3); PLATELET COUNT 227 K/mm3 (130-400); RED BLOOD COUNT 5.03 M/mm3 (4.20-5.60); REDCELL DISTRIBUTION WIDTH-CV 12.7 % (11.5-14.5)
[2021-09-16 13:56] LABS: BILIRUBIN,TOTAL 0.6 mg/dL (0.2-1.2); C-REACTIVE PROTEIN 0.3 mg/dL (0.00-0.50); CALCIUM 8.8 mg/dL (8.4-10.2); CREATININE, serum 0.88 mg/dL (0.72-1.25); POTASSIUM 4.1 mmol/L (3.5-4.5); TOTAL PROTEIN 6.9 gm/dL (6.2-8.1)
== END ==
LOC: COL.LAB 12:49
PROVIDERS: Registered Nurse
DX: R10.30 Lower abdominal pain, unspecified (principal)

== ENCOUNTER 2021-09-23 08:38 | Emergency (ER) | payer BC ==
[~2021-09-23] VITALS: Ht 162.6 cm; Wt 80.0 kg
[2021-09-23 08:55] VITALS: TEMP 98.9
[2021-09-23 09:20] LABS: COLLECTION METHOD CLEAN CATCH
[2021-09-23 09:26] LABS: BASO # 0.1 K/mm3 (0.0-0.2); BASO % 0.7 % (0.0-2.0); EOS # 0.3 K/mm3 (0.0-0.7); GRAN # 5.7 K/mm3 (1.4-6.5); GRAN % 70.6 % (42.2-75.2); HEMOGLOBIN 15.1 g/dl (13.5-18.0); LYMPH # 1.5 K/mm3 (1.2-3.4); LYMPH % 18.8 % (20.0-51.0); MEAN CELL VOLUME 84 fl (80.0-100.0); MEAN CORPUSCULAR HEMOGLOBIN 30 pg (27-31); MEAN CORPUSCULAR HGB CONC 35 g/dl (33.0-37.0); MEAN PLATELET VOLUME 10.2 fl (7.4-10.4); MONO # 0.5 K/mm3 (0.1-0.6); MONO % 5.7 % (1.7-9.3); PLATELET COUNT 196 K/mm3 (130-400); RED BLOOD COUNT 5.11 M/mm3 (4.20-5.60); REDCELL DISTRIBUTION WIDTH-CV 12.6 % (11.5-14.5)
[2021-09-23 09:30] LABS: PH 7 (5-8); SQUAMOUS EPITHELIAL None Seen /hpf (0-10); URINE APPEARANCE Clear (CLEAR/HAZY); URINE BACTERIA None Seen /hpf (NONE SEEN); URINE BILIRUBIN Negative (NEGATIVE); URINE BLOOD Negative (NEGATIVE); URINE COLOR Straw (YELLOW); URINE GLUCOSE Negative (NEGATIVE); URINE KETONE Negative (NEGATIVE); URINE LEUKOCYTE ESTERASE Negative (NEGATIVE); URINE NITRATE Negative (NEGATIVE); URINE PROTEIN(semi-quant) Negative (NEGATIVE); URINE RBC None Seen /hpf (0-2); URINE UROBILINOGEN Negative (NEGATIVE)
[2021-09-23 09:42] LABS: ALBUMIN 4.1 gm/dL (3.5-5.0); BILIRUBIN,TOTAL 0.5 mg/dL (0.2-1.2); CALCIUM 8.9 mg/dL (8.4-10.2); CREATININE, serum 0.9 mg/dL (0.72-1.25); POTASSIUM 4.5 mmol/L (3.5-4.5); TOTAL PROTEIN 6.7 gm/dL (6.2-8.1)
[2021-09-23] MEDS ORDERED: PERCOCET 325 MG1 TA2 PO (13:06)
[2021-09-23] MEDS ORDERED: CIPRO 500MG TA500 MG PO (13:06)
[2021-09-23] MEDS ORDERED: FLAGYL500 MG PO (13:06)
[2021-09-23 14:00] VITALS: BP 112/81; PULSE 80
[2021-09-23] MEDS ORDERED: ZOFRAN ODT4 MG PO (14:41)
== END 2021-09-23 14:00 | disposition home or self-care (01) ==
LOC: COL.ER 08:38
PROVIDERS: Personal Emergency Response Attendant
DX: K57.92 Diverticulitis of intestine, part unspecified, without perforation or abscess without bleeding (principal); N32.1 Vesicointestinal fistula; J45.909 Unspecified asthma, uncomplicated; F17.290 Nicotine dependence, other tobacco product, uncomplicated; Z90.49 Acquired absence of other specified parts of digestive tract; Z79.899 Other long term (current) drug therapy
CPT/HCPCS: J2270; J2405; J7030; Q9967

== ENCOUNTER 2021-09-30 11:21 | Emergency (ER) | payer BC ==
[~2021-09-30] VITALS: Ht 162.6 cm; Wt 77.7 kg
[~2021-09-30 11:21] MED LIST changes: +PERCOCET 325 MG1 TA2 PO
[2021-09-30 11:31] VITALS: TEMP 97.5
[2021-09-30 12:07] VITALS: BP 113/75; PULSE 79
== END 2021-09-30 12:07 | disposition home or self-care (01) ==
LOC: COL.ER 11:21
DX: G56.01 Carpal tunnel syndrome, right upper limb (principal); F17.290 Nicotine dependence, other tobacco product, uncomplicated

== ENCOUNTER 2021-10-08 10:28 | Emergency (ER) | payer BC ==
[~2021-10-08] VITALS: Ht 162.6 cm; Wt 77.3 kg
[2021-10-08 10:55] VITALS: BP 118/77; TEMP 97.8
[2021-10-08] MEDS ORDERED: AMOXICILLIN 8751 TAB PO (11:57)
[2021-10-08 12:20] VITALS: PULSE 81
== END 2021-10-08 12:20 | disposition home or self-care (01) ==
LOC: COL.ER 10:28
DX: K57.92 Diverticulitis of intestine, part unspecified, without perforation or abscess without bleeding (principal); Z90.49 Acquired absence of other specified parts of digestive tract

== ENCOUNTER → 2021-10-10 | Outpatient (CLI) | payer BC ==
[~2021-10-10] MED LIST changes: +FOCALIN2.5 MG PO; +NEURONTIN100 MG/CAP PO; +PRILOSEC 20MG20 MG PO; +ROXICODONE 55 MG/TAB PO; +TYLENOL 500MG500 MG PO; +[UNRECOGNIZED DRUG - OTHER] PO
== END ==
LOC: COL.LAB 19:42
DX: K57.32 Diverticulitis of large intestine without perforation or abscess without bleeding (principal)

== ENCOUNTER → 2021-10-13 | Outpatient (CLI) | payer BC ==
[~2021-10-13] MED LIST changes: -FOCALIN2.5 MG PO; -NEURONTIN100 MG/CAP PO; -PRILOSEC 20MG20 MG PO; -ROXICODONE 55 MG/TAB PO; -TYLENOL 500MG500 MG PO; -[UNRECOGNIZED DRUG - OTHER] PO
== END ==
LOC: COL.RAD 07:37
DX: K44.9 Diaphragmatic hernia without obstruction or gangrene (principal); E83.59 Other disorders of calcium metabolism; N29 Other disorders of kidney and ureter in diseases classified elsewhere; K57.32 Diverticulitis of large intestine without perforation or abscess without bleeding
CPT/HCPCS: Q9967

== ENCOUNTER 2021-11-03 08:20 | Emergency (ER) | payer BC ==
[~2021-11-03] VITALS: Ht 162.6 cm; Wt 81.4 kg
[~2021-11-03 08:20] MED LIST changes: +FOCALIN2.5 MG PO; +PRILOSEC 20MG20 MG PO
[2021-11-03 08:45] VITALS: TEMP 98
[2021-11-03 09:38] LABS: BASO % 0.3 % (0.0-2.0); EOS # 0.3 K/mm3 (0.0-0.7); EOS % 3.2 % (0.0-4.0); GRAN % 77.9 % (42.2-75.2); HEMATOCRIT 40.5 % (42.0-52.0); LYMPH # 1.2 K/mm3 (1.2-3.4); LYMPH % 13.1 % (20.0-51.0); MEAN CELL VOLUME 86 fl (80.0-100.0); MEAN CORPUSCULAR HEMOGLOBIN 30 pg (27-31); MEAN CORPUSCULAR HGB CONC 35 g/dl (33.0-37.0); MEAN PLATELET VOLUME 10.1 fl (7.4-10.4); MONO # 0.5 K/mm3 (0.1-0.6); MONO % 5.2 % (1.7-9.3); PLATELET COUNT 192 K/mm3 (130-400); REDCELL DISTRIBUTION WIDTH-CV 12.3 % (11.5-14.5)
[2021-11-03 09:38] LABS: COLLECTION METHOD CLEAN CATCH
[2021-11-03 09:49] LABS: PH 7 (5-8); SQUAMOUS EPITHELIAL None Seen /hpf (0-10); URINE APPEARANCE Clear (CLEAR/HAZY); URINE BACTERIA None Seen /hpf (NONE SEEN); URINE BILIRUBIN Negative (NEGATIVE); URINE BLOOD Negative (NEGATIVE); URINE COLOR Yellow (YELLOW); URINE GLUCOSE Negative (NEGATIVE); URINE KETONE Negative (NEGATIVE); URINE LEUKOCYTE ESTERASE Negative (NEGATIVE); URINE NITRATE Negative (NEGATIVE); URINE PROTEIN(semi-quant) Negative (NEGATIVE); URINE RBC 0-2 /hpf (0-2); URINE UROBILINOGEN Negative (NEGATIVE)
[2021-11-03 09:51] LABS: ALBUMIN 3.8 gm/dL (3.5-5.0); BILIRUBIN,TOTAL 0.6 mg/dL (0.2-1.2); CALCIUM 8.7 mg/dL (8.4-10.2); CREATININE, serum 0.8 mg/dL (0.72-1.25); POTASSIUM 4.2 mmol/L (3.5-4.5)
[2021-11-03] MEDS ORDERED: NORCO 325 MG-51 TAB PO (15:12)
[2021-11-03 15:28] VITALS: BP 110/81; PULSE 80
== END 2021-11-03 15:30 | disposition home or self-care (01) ==
LOC: COL.ER 08:20
PROVIDERS: Emergency Medicine
DX: R10.32 Left lower quadrant pain (principal); F17.210 Nicotine dependence, cigarettes, uncomplicated; Z90.49 Acquired absence of other specified parts of digestive tract
CPT/HCPCS: J2270; Q9967

== ENCOUNTER 2021-11-07 10:44 | Inpatient (IN) | payer BC ==
[~2021-11-07] VITALS: Ht 162.6 cm; Wt 74.1 kg
[2021-11-29] MEDS ORDERED: [UNRECOGNIZED DRUG - OTHER] PO (12:24)
--- NOTE | 2021-11-29 13:24 | NUR ---
Initial visit; Per request prayed with Shabbir's mom regarding Shabbir's surgery. Nutritionist Public Health requested a successful procedure and rapid and thorough healing along with mom relaxing and her paulette be strengthened.
[2021-11-29 16:16] VITALS: BP 96/70; PULSE 100; TEMP 97.8
[2021-11-30 03:49] VITALS: BP 110/81; PULSE 96; TEMP 97.6
[2021-11-30 06:36] LABS: BASO % 0.2 % (0.0-2.0); GRAN # 8.2 K/mm3 (1.4-6.5); GRAN % 88.9 % (42.2-75.2); HEMATOCRIT 39.4 % (42.0-52.0); HEMOGLOBIN 13.4 g/dl (13.5-18.0); LYMPH # 0.5 K/mm3 (1.2-3.4); LYMPH % 5.8 % (20.0-51.0); MEAN CELL VOLUME 86 fl (80.0-100.0); MEAN CORPUSCULAR HEMOGLOBIN 29 pg (27-31); MEAN CORPUSCULAR HGB CONC 34 g/dl (33.0-37.0); MEAN PLATELET VOLUME 10.4 fl (7.4-10.4); MONO # 0.5 K/mm3 (0.1-0.6); MONO % 4.8 % (1.7-9.3); PLATELET COUNT 204 K/mm3 (130-400); RED BLOOD COUNT 4.56 M/mm3 (4.20-5.60); REDCELL DISTRIBUTION WIDTH-CV 12.4 % (11.5-14.5)
[2021-11-30 06:54] LABS: CALCIUM 8.3 mg/dL (8.4-10.2); CREATININE, serum 0.84 mg/dL (0.72-1.25); MAGNESIUM 1.4 mg/dL (1.6-2.6)
--- NOTE | 2021-11-30 07:28 | NUR ---
Patient arrived to the floor at approximately 2014 from sigmoidectomy. Patient has had complaints of gas pain throughout the shift; this nurse explained that gas pain will subside when the pt is able to ambulate. Shi in place and draining well. Patient has been able to ingest PO intake without difficulty. Patient has had no other complaints throughout this shift. Call light within reach.
[2021-11-30 08:23] VITALS: BP 117/74; PULSE 98; TEMP 98.5
--- NOTE | 2021-11-30 09:11 | NUR ---
PT ANXIOUS IN BED. AM MEDS GIVEN ADVANCED DIET TO FULL LIQUIDS. PT TOLERATING WELL. C/O CORRY PAINS. K-PAD PROVIDED FOR COMFORT.PHYSICIAN IN TO SEE PT. WILL REEVALUATE TOMMORROW FOR DISCHARGE.
--- NOTE | 2021-11-30 09:19 | NUR ---
ELINA met with the patient to discuss discharge plan. The patient lives in [place] with his , Nirmal (#[phone]), and their 5-year-old son and 2-year-old daughter. He reports independence with ADLs and does not have any DME. The patient's primary care provider is Shara Jimenez and [facility]. He reports no difficulties obtaining his meds. The patient does not have a DPOA-HC, but he was interested in obtaining a form. ELINA provided. The patient plans on returning home with his family upon discharge. No additional needs at this time. *Discharge plan: home with family*
[2021-11-30 11:57] VITALS: BP 99/66; PULSE 107; TEMP 984
[2021-11-30 15:22] VITALS: BP 109/64; PULSE 126; TEMP 98.3
[2021-11-30 19:46] VITALS: BP 118/72; PULSE 116; TEMP 98.2
[2021-12-01] VITALS (7 sets, daily range): BP systolic 107–127; BP diastolic 68–86; PULSE 91–138; TEMP 98–99.6
[2021-12-01 06:31] LABS: BASO % 0.3 % (0.0-2.0); EOS % 0.3 % (0.0-4.0); GRAN # 4.9 K/mm3 (1.4-6.5); GRAN % 73.4 % (42.2-75.2); HEMATOCRIT 39.3 % (42.0-52.0); HEMOGLOBIN 13.1 g/dl (13.5-18.0); LYMPH # 1.3 K/mm3 (1.2-3.4); LYMPH % 18.9 % (20.0-51.0); MEAN CELL VOLUME 88 fl (80.0-100.0); MEAN CORPUSCULAR HEMOGLOBIN 29 pg (27-31); MEAN CORPUSCULAR HGB CONC 33 g/dl (33.0-37.0); MEAN PLATELET VOLUME 10.6 fl (7.4-10.4); MONO # 0.4 K/mm3 (0.1-0.6); MONO % 6.6 % (1.7-9.3); PLATELET COUNT 159 K/mm3 (130-400); RED BLOOD COUNT 4.45 M/mm3 (4.20-5.60); REDCELL DISTRIBUTION WIDTH-CV 12.7 % (11.5-14.5)
[2021-12-01 06:50] LABS: ALBUMIN 3.2 gm/dL (3.5-5.0); BILIRUBIN,TOTAL 0.5 mg/dL (0.2-1.2); CREATININE, serum 0.79 mg/dL (0.72-1.25); MAGNESIUM 1.8 mg/dL (1.6-2.6)
--- NOTE | 2021-12-01 10:29 | NUR ---
Follow-up visit; Patient thanked Digital Media Designer for looking in on him. Patient is in considerable discomfort. Digital Media Designer offered God's blessings and God's blessings.
--- NOTE | 2021-12-01 13:43 | NUR ---
INFECTION CONTROL CONTACTED ET PT PLACED IN DROPLET PRECAUTIONS.
--- NOTE | 2021-12-01 15:45 | NUR ---
PT IS UP WALKING IN HALLWAY FOR 2ND TIME TODAY WITH SBA. IVF WAS STOPPED EARLIER @ 1200, PT TOLERATING FLUIDS WELL. PT HAS HAD HIS MOTHER HERE VISITING. PT IS COOPERATIVE, STATES THAT HE IS STILL UNABLE TO PASS GAS BUT FEELS LIKE IT HAS BEEN MOVING, STILL HAVING PAIN IN SHOULDERS ET CHEST. ROXICODONE ET SCHEDULED TYLENOL HAVE ADEQUATELY CONTROLLED PAIN, PT STATES THAT IT IS TOLERABLE.
--- NOTE | 2021-12-01 16:51 | NUR ---
PT RESTING QUIETLY IN BED, IS @ BEDSIDE. PT RATES PAIN IN HIS SHOULDERS ET CHEST 2/10 @ REST, 5/10 WITH MOVEMENT. PT IS AGREEABLE TO WAITING TO TAKE ROXICODONE WHEN IT IS TIME THAT HE CAN. ROLDAN CATHTER DRAINING DEPENDENTLY, URINE IS YELLOW ET CLEAR. RESPIRATIONS UNLABORED ON RA. CALL LIGHT WITHIN REACH.
--- NOTE | 2021-12-01 19:31 | NUR ---
RECEIVED CHANGE OF SHIFT REPORT FROM DAY SHIFT RN.
--- NOTE | 2021-12-01 22:25 | NUR ---
PATIENT REPORTING SEE "LOTS OF BLOOD" IN HIS ROLDAN CATHETER DD TUBING. OBSERVED URINE COLOR LIGHT RED TINGED, NO CLOTS OBSERVED IN THE TUBING WITH STAFF BARREL WATERER REPORTING SHE SAYS "A BUNCH OF LITTLE ONES IN THE TUBING". OBSERVED NO CLOTS IN CATHETER TUBING AND NONE OBSERVED IN DD BAG. ENCOURAGED PATIENT TO DRINK MORE AND WILL CONTINUE TO MONITOR ROLADN CATHETER OUTPUT. OBSERVED NO BLOOD LEAKING FROM AROUND CATHETER, TIP OF PENIS IS CLEAR OF REDNESS. NO COMPLAINS OF NAUSEA BUT REPORTS HAVING GENERALIZED BODY DISCOMFORT "FROM DOING TOO MUCH TODAY" REPORTED BY PATIENT.
[2021-12-02 03:37] VITALS: BP 121/80; PULSE 108; TEMP 98.7
[2021-12-02 06:34] LABS: BASO % 0.5 % (0.0-2.0); EOS # 0.1 K/mm3 (0.0-0.7); EOS % 1.8 % (0.0-4.0); GRAN # 4.3 K/mm3 (1.4-6.5); GRAN % 70.6 % (42.2-75.2); HEMATOCRIT 37.2 % (42.0-52.0); HEMOGLOBIN 12.6 g/dl (13.5-18.0); LYMPH # 1.2 K/mm3 (1.2-3.4); LYMPH % 19.6 % (20.0-51.0); MEAN CELL VOLUME 87 fl (80.0-100.0); MEAN CORPUSCULAR HEMOGLOBIN 30 pg (27-31); MEAN CORPUSCULAR HGB CONC 34 g/dl (33.0-37.0); MEAN PLATELET VOLUME 10.1 fl (7.4-10.4); MONO # 0.4 K/mm3 (0.1-0.6); MONO % 7.2 % (1.7-9.3); PLATELET COUNT 164 K/mm3 (130-400); RED BLOOD COUNT 4.27 M/mm3 (4.20-5.60); REDCELL DISTRIBUTION WIDTH-CV 12.5 % (11.5-14.5)
[2021-12-02 06:46] LABS: ALBUMIN 3.1 gm/dL (3.5-5.0); BILIRUBIN,TOTAL 0.6 mg/dL (0.2-1.2); CALCIUM 8.2 mg/dL (8.4-10.2); CREATININE, serum 0.72 mg/dL (0.72-1.25); POTASSIUM 3.7 mmol/L (3.5-4.5)
[2021-12-02 07:21] VITALS: BP 113/83; PULSE 116; TEMP 98.3
--- NOTE | 2021-12-02 07:28 | NUR ---
CHANGE OF SHIFT REPORT GIVEN TO DAY SHIFT RNCAROLINA.
[2021-12-02] MEDS ORDERED: ROXICODONE 55 MG/TAB PO (09:06)
[2021-12-02] MEDS ORDERED: NEURONTIN100 MG/CAP PO (09:07)
[2021-12-02] MEDS ORDERED: TYLENOL 500MG500 MG PO (09:08)
[2021-12-02 11:35] VITALS: BP 118/82; PULSE 117; TEMP 98.1
--- NOTE | 2021-12-02 14:00 | NUR ---
PT RESTING QUIETLY IN BED, STATES THAT HE IS VERY TIRED. PT ENCOURAGED TO LIMIT ACTIVITY SOMEWHAT, HAS BEEN AMBULATING VERY FREQUENTLY IN HALLS, PT VERBALIZES UNDERTSANDING. YULI CATHTER HAS BEEN REMOVED ET PT HAS BEEN ABLE TO URINATE, STATES THAT IT DOES BURN A BIT "JUST AT THE TIP" WHEN HE URINATES. PT DENIES OTHER NEEDS. RESPIRATIONS UNLABORED ON RA. CALL LIGHT WITHIN REACH.
[2021-12-02 16:00] VITALS: BP 119/78; PULSE 110; TEMP 98.3
--- NOTE | 2021-12-02 18:31 | NUR ---
PT DCED TO HOME @ THIS TIME, WILL BE STAYING WITH HIS MOM. PT TAKEN DOWNSTAIRS VIA WC PUSHED BY CARIDAD STOLL. DISCHARGE INSTRUCTIONS ET EDUCATION GIVEN, PT DENIES FURTHER QUESTIONS. IV DISCONTINUED. PT DID REQUIRE ASSISTANCE PUTTING ON HIS SHOES ET SOCKS R/T PAIN BUT STATES THAT PAIN IS TOLERABLE @ REST.
== END 2021-12-02 18:30 | disposition home or self-care (01) | DRG 330 ==
LOC: INPTSU 11-29 11:44 → SURG 11-29 13:00
PROVIDERS: Urology; ADMIT Surgery
PROC: 8E0W4CZ Robotic Assisted Procedure of Trunk Region, Percutaneous Endoscopic Approach (ICD-10-PCS; 2021-11-29)
PROC: 0TJB8ZZ Inspection of Bladder, Via Natural or Artificial Opening Endoscopic (ICD-10-PCS; 2021-11-29)
PROC: 0DTN4ZZ Resection of Sigmoid Colon, Percutaneous Endoscopic Approach (ICD-10-PCS; principal; 2021-11-29 13:00)
PROC: 0DNW4ZZ Release Peritoneum, Percutaneous Endoscopic Approach (ICD-10-PCS; 2021-11-29 13:00)
DX: K57.32 Diverticulitis of large intestine without perforation or abscess without bleeding (principal); N32.1 Vesicointestinal fistula; K21.9 Gastro-esophageal reflux disease without esophagitis; D50.9 Iron deficiency anemia, unspecified; J45.909 Unspecified asthma, uncomplicated; K44.9 Diaphragmatic hernia without obstruction or gangrene; F41.9 Anxiety disorder, unspecified; G89.29 Other chronic pain; F90.9 Attention-deficit hyperactivity disorder, unspecified type; K66.0 Peritoneal adhesions (postprocedural) (postinfection); E83.42 Hypomagnesemia
CPT/HCPCS: A4314; A9284; J0690; J1100; J1170; J1650; J2175; J2250; J2405; J2704; J3010; J3475; J7120

== ENCOUNTER → 2021-11-23 | Outpatient (CLI) | payer BC ==
[~2021-11-23] MED LIST changes: +NEURONTIN100 MG/CAP PO; +ROXICODONE 55 MG/TAB PO; +TYLENOL 500MG500 MG PO; +[UNRECOGNIZED DRUG - OTHER] PO
[2021-11-23 18:12] LABS: BASO # 0.1 K/mm3 (0.0-0.2); BASO % 0.9 % (0.0-2.0); EOS # 0.4 K/mm3 (0.0-0.7); EOS % 5.4 % (0.0-4.0); GRAN # 4.1 K/mm3 (1.4-6.5); GRAN % 62.7 % (42.2-75.2); HEMATOCRIT 40.4 % (42.0-52.0); HEMOGLOBIN 13.5 g/dl (13.5-18.0); LYMPH # 1.7 K/mm3 (1.2-3.4); LYMPH % 26.2 % (20.0-51.0); MEAN CELL VOLUME 87 fl (80.0-100.0); MEAN CORPUSCULAR HEMOGLOBIN 29 pg (27-31); MEAN CORPUSCULAR HGB CONC 33 g/dl (33.0-37.0); MEAN PLATELET VOLUME 9.7 fl (7.4-10.4); MONO # 0.3 K/mm3 (0.1-0.6); MONO % 4.6 % (1.7-9.3); PLATELET COUNT 221 K/mm3 (130-400); RED BLOOD COUNT 4.62 M/mm3 (4.20-5.60); REDCELL DISTRIBUTION WIDTH-CV 12.6 % (11.5-14.5)
[2021-11-23 18:27] LABS: ALBUMIN 3.8 gm/dL (3.5-5.0); BILIRUBIN,TOTAL 0.4 mg/dL (0.2-1.2); CALCIUM 9.1 mg/dL (8.4-10.2); CREATININE, serum 0.9 mg/dL (0.72-1.25); POTASSIUM 3.8 mmol/L (3.5-4.5); TOTAL PROTEIN 6.5 gm/dL (6.2-8.1)
== END ==
LOC: COL.LAB 17:48
PROVIDERS: Registered Nurse
DX: R10.32 Left lower quadrant pain (principal)

== ENCOUNTER 2022-03-18 09:31 | Emergency (ER) | payer BC ==
[~2022-03-18] VITALS: Ht 162.6 cm; Wt 77.3 kg
[2022-03-18 09:37] VITALS: BP 115/80; PULSE 70; TEMP 97.7
[2022-03-18] MEDS ORDERED: NORCO 325 MG-51 TAB PO (09:51)
[2022-03-18] MEDS ORDERED: AMOXICILLIN875 MG PO (09:51)
== END 2022-03-18 10:06 | disposition home or self-care (01) ==
LOC: COL.ER 09:31
DX: H66.91 Otitis media, unspecified, right ear (principal); F17.210 Nicotine dependence, cigarettes, uncomplicated; Z88.5 Allergy status to narcotic agent